=== PATIENT | male | born 1980 | race Caucasian/White ===

== ENCOUNTER 2025-05-13 06:29 | Emergency (ER) | payer OTHER ==
[~2025-05-13] VITALS: Ht 188 cm; Wt 117.9 kg
[2025-05-13] MEDS ORDERED: Amlodipine Bes2.5 MG (07:35)
[2025-05-13] MEDS ORDERED: GABA400 PO (07:35)
[2025-05-13] MEDS ORDERED: LOSA25 (07:36)
[2025-05-13] MEDS ORDERED: BACLOFEN5 M3 (07:36)
[2025-05-13] MEDS ORDERED: Vitamin C100 M1 (07:37)
[2025-05-13] MEDS ORDERED: ALLO100 (07:37)
[2025-05-13] MEDS ORDERED: ERGO400 (07:37)
[2025-05-13] MEDS ORDERED: IBUP800 PO (07:37)
[2025-05-13] MEDS ORDERED: MELO7.5 (07:37)
[2025-05-13] MEDS ORDERED: HYDCHL25 PO (07:37)
[2025-05-13 07:38] LABS: BASOPHILS ABSOLUTE AUTO 0.05 K/mm3 (0.00-0.23); BASOPHILS PERCENT AUTO 1 % (0-2); EOSINOPHILS ABSOLUTE AUTO 0.21 K/mm3 (0.00-0.68); EOSINOPHILS PERCENT AUTO 3 % (0-6); Hematocrit 38.7 % (37.0-53.0); Hemoglobin 14.1 g/dL (13.5-17.5); IMMATURE GRAN ABSOLUTE AUTO 0.02 K/mm3 (0.00-0.10); IMMATURE GRAN PERCENT AUTO 0 % (0-1); LYMPHOCYTES ABSOLUTE AUTO 1.50 K/mm3 (0.84-5.20); LYMPHOCYTES PERCENT AUTO 24 % (21-46); MONOCYTES ABSOLUTE AUTO 0.68 K/mm3 (0.16-1.47); MONOCYTES PERCENT AUTO 11 % (4-13); Mean Corpuscular HGB Conc 36.4 g/dL (31.5-36.5); Mean Corpuscular Volume 87 fL (80-100); NEUTROPHILS ABSOLUTE AUTO 3.69 K/mm3 (1.96-9.15); NEUTROPHILS PERCENT AUTO 60 % (41-73); NRBC ABSOLUTE 0.00 K/mm3 (0.00-0.02); NRBC Auto 0.0 /100 WBC (0.0-0.2); Platelet Count 185 K/mm3 (150-400); RDW Coefficient Variation 12.5 % (11.7-14.2); RDW Standard Deviation 39.9 fL (35.1-46.3)
[2025-05-13] MEDS ORDERED: FLAX (07:38)
[2025-05-13] MEDS ORDERED: POTCIT10 (07:38)
[2025-05-13 07:50] LABS: Anion Gap 6.0 mmol/L (3-11); Blood Urea Nitrogen 12.0 mg/dL (8-24); CO2, Blood 28.0 mmol/L (21-32); Calcium, Blood 9.0 mg/dL (8.5-10.1); Chloride, Blood 107.0 mmol/L (98-108); Creatinine, Blood 0.9 mg/dL (0.60-1.20); Glucose, Blood 135.0 mg/dL (70-99); Potassium, Blood 3.1 mmol/L (3.5-5.5); Sodium, Blood 138.0 mmol/L (136-145)
[2025-05-13] MEDS ORDERED: ACYC400 PO (08:27)
[2025-05-13] MEDS ORDERED: PRED20 PO (08:27)
== END 2025-05-13 10:34 | disposition home or self-care (01) ==
LOC: ER 06:29
PROVIDERS: Emergency Medicine
DX: G51.0 Bell's palsy (principal)
CPT/HCPCS: 70450; 80048; 85025; 99284-25; A9270